=== PATIENT | male | born 1980 | race Caucasian/White ===

== ENCOUNTER 2018-09-16 18:48 | Emergency (ER) | payer OTHER ==
[~2018-09-16] VITALS: Ht 182.9 cm; Wt 83.9 kg
[2018-09-16] MEDS ORDERED: NORCO 5-325 TA1 EACH PO (19:43)
== END 2018-09-16 19:50 | disposition home or self-care (01) ==
LOC: ED 18:48
PROC: 2W2AX4Z Dressing of Right Upper Arm using Bandage (ICD-10-PCS; principal; 2018-09-16)
DX: T23.271A Burn of second degree of right wrist, initial encounter (principal); F17.200 Nicotine dependence, unspecified, uncomplicated; X10.2XXA Contact with fats and cooking oils, initial encounter
CPT/HCPCS: 16020; 99283-25

== ENCOUNTER 2018-09-17 10:21 | Emergency (ER) | payer OTHER, MEDICAID ==
[~2018-09-17] VITALS: Ht 182.9 cm; Wt 83.9 kg
[~2018-09-17 10:21] MED LIST: NORCO 5-325 TA1 EACH PO
--- OUTSIDE RECORDS SUMMARY | 2018-09-17 10:24 | XMS ---
PreManage Notification: MARIA MORALES Security Bankruptcy Assistant Events No recent Security Events currently on file CRITERIA MET - [facility] - 2 Visits in 30 Days CARE PROVIDERS There are no care providers on record at this time. Agatha has no Care Guidelines for this patient. [facility]12 MO.) [facility] NOTE: Visits indicate total known visits. ED/C VISIT TRACKING (12 MO.) 09/17/2018 10:22 [facility] [place] TYPE: Emergency COMPLAINT: - WOUND CHECK 09/16/2018 18:48 [facility] [place] TYPE: Emergency COMPLAINT: - WC-GREASE BURN ON R HAND/WRIST INPATIENT VISIT TRACKING (12 MO.) No inpatient visits to display in this time frame [email or web address]
== END 2018-09-17 10:38 | disposition home or self-care (01) ==
LOC: ED 10:21
DX: T23.201D Burn of second degree of right hand, unspecified site, subsequent encounter (principal); Z48.00 Encounter for change or removal of nonsurgical wound dressing; F17.200 Nicotine dependence, unspecified, uncomplicated
CPT/HCPCS: 99282

== ENCOUNTER 2019-03-18 23:08 | Emergency (ER) | payer MEDICAID ==
[~2019-03-18] VITALS: Ht 182.9 cm; Wt 77.1 kg
[~2019-03-18 23:08] MED LIST changes: +PENICILLIN V P500 MG PO
[2019-03-19] MEDS ORDERED: PROTONIX40 MG PO (00:20)
== END 2019-03-19 00:30 | disposition home or self-care (01) ==
LOC: ED 23:08
DX: K29.00 Acute gastritis without bleeding (principal); F17.200 Nicotine dependence, unspecified, uncomplicated
CPT/HCPCS: 80053; 81001; 83690; 85025; 99284

== ENCOUNTER → 2019-07-06 | Emergency (ER) | payer OTHER ==
[~2019-07-06] VITALS: Ht 182.9 cm; Wt 81.7 kg
[~2019-07-06] MED LIST changes: +ACETAMINOPHEN500 MG PO; +IBUPROFEN200 MG PO; +KEFLEX500 MG PO; +PROTONIX40 MG PO; +TYLENOL WITH C1 EACH PO
== END ==
LOC: ED 02:47
DX: K08.89 Other specified disorders of teeth and supporting structures (principal); F17.200 Nicotine dependence, unspecified, uncomplicated
CPT/HCPCS: 99282; A9270